=== PATIENT | male | born 1955 | race Caucasian/White ===

== ENCOUNTER 2017-02-27 17:24 | Emergency (ER) | payer SELFPAY ==
[2017-02-27 17:35] VITALS: BP 137/84
[2017-02-27] MEDS ORDERED: Sodium Chloride 0.9% 1,000 ML IV SCH (18:15)
[2017-02-27] MEDS ORDERED: Ondansetron 4 MG/2 ML SDV IVPUSH ONE (18:47)
[2017-02-27] MEDS ORDERED: HYDROmorphone 1 MG/ML Syringe IVPUSH ONE (18:47)
[2017-02-27] MEDS ORDERED: Iopamidol 755 Mg/ML 100 ML Bottle IVPUSH ONE (19:17)
[2017-02-27] MEDS ORDERED: Iopamidol 612 MG/ML 100 ML Bottle IVPUSH ONE (19:21)
[2017-02-27] MEDS ORDERED: Lidocaine 1% with EPINEPHrine 1:100,000 20 ML MDV ONE (19:22)
[2017-02-27] MEDS ORDERED: Bupivacaine 0.5%/EPINEPHrine 1:200,000 50 ML MDV ONE (19:22)
--- NOTE | 2017-02-27 19:28 | CT ---
CT neck Technique: Multiple axial sections were obtained from above the external auditory canals inferiorly through the lung apices. Intravenous contrast was utilized. Findings: Thickening of the sternocleidomastoid mastoid muscle is seen. Low-density is seen slightly below the level of the mandible involving portions of the sternocleidomastoid mastoid muscle which is felt compatible with abscess. This has maximum measurement about 3.5 cm. Diffuse inflammatory change is seen within the subcutaneous fat within the left neck as well as skin thickening. Mild increased density is noted within the left parotid salivary gland compatible with extension of inflammatory change. Enlarged left submandibular salivary gland also noted likely relating to inflammatory change. Kyphosis noted within the cervical spine likely due to muscle spasm. Scattered degenerative change is noted within the cervical spine. Low density is seen between the upper sternocleidomastoid mastoid muscle and the posterior neck muscles. Difficult to exclude additional abscess which has a thickness of around 5 mm. This occurs at the level of the mandibular angle. Impression: 1. Findings compatible with abscess involving a portion of the sternocleidomastoid mastoid muscle. Inflammatory thickening is seen throughout this muscle as well as additional inflammatory change involving submandibular and parotid salivary glands which are enlarged and show inflammation. Diffuse inflammatory change and thickening of the skin compatible with additional cellulitis. 2. Possible additional abscess between the sternocleidomastoid mastoid muscle and posterior neck muscle at the level of the mandible. As mentioned above, this as a thickness of around 5 mm. Diagnostic code #5
[2017-02-27] MEDS ORDERED: Insulin Regular, Human 100 Units/ML 3 ML Vial SUBCUT STA (19:32)
--- NOTE | 2017-02-27 19:38 | EDM.PDOC ---
ED HPI GENERAL MEDICAL PROBLEM - General Chief Complaint: Neck Problem Stated Complaint: SWELLING ON L SIDE OF NECK Time Seen by Provider: 02/27/17 17:54 Source of Information: Reports: Patient, Provider (Dr. Jenkins), RN notes reviewed History Limitations: Reports: No Limitations - History of Present Illness INITIAL COMMENTS - FREE TEXT/NARRATIVE: The patient states that he developed left neck swelling about 2 months ago. He was seen at a clinic in [place]. He states that no tests were done, but he was prescribed 10 days of antibiotics. The antibiotics reduce the swelling significantly, but the swelling recurred about one week after he finished the antibiotics. He was then seen in a clinic in [place]. Blood tests were apparently negative. He was again prescribed some antibiotics for 10 days, which resolved the swelling. Again, the swelling recurred about 7 days after he finished antibiotics. He was seen at an urgent care in [place]. He states that he was given an injection of steroids and prescribed antibiotics for 15 days. Again, the swelling resolved, only to recur about one week later. He was seen by Amaya Hare in the clinic this past 02/25/2017, where he states he was prescribed prednisone. He states that he took all of them at the same time. He underwent an ultrasound of the neck yesterday, but he does not know the results. He was seen by Dr. Jenkins this morning. A fine-needle aspirate was performed, obtaining non-purulent fluid. He was prescribed antibiotics. He states that after the FNA, the swelling became significantly worse. He states that he took 3 of the antibiotic pills all at once. He contacted Dr. Jenkins, who instructed him to come to the ED. No recent fever. The patient denies a dental pain with mastication. Left Neck Pain Score (Numeric/FACES): 7 - Related Data Allergies Allergy/AdvReac Type Severity Reaction Status Date / Time No Known Allergies Allergy Verified 02/27/17 17:39 Home Meds: Home Meds Sulfamethoxazole/Trimethoprim [Bactrim Ds Tablet] 1 tab PO BID 02/27/17 [History ] Past Medical History Endocrine/Metabolic History: Reports: Obesity/BMI 30+ - Past Surgical History HEENT Surgical History: Reports: Oral surgery ([place] teeth extraction), Tonsillectomy Neurological Surgical History: Reports: Lumbar spine (Microdiscectomy) Musculoskeletal Surgical History: Reports: Other (see below) (Left foot repair, Left arm surgery) Social & Family History - Tobacco Use Smoking Status *Q: Never Smoker - Caffeine Use Caffeine Use: Reports: Coffee - Alcohol Use Alcohol Use History: Yes Alcohol Use Frequency: Socially - Recreational Drug Use Recreational Drug Use: No - Living Situation & Occupation Living situation: Reports: single, alone Occupation: unemployed ED ROS GENERAL - Review of Systems Review Of Systems: See Below Constitutional: Reports: No Symptoms HEENT: Reports: Throat Swelling (as per the HPI) Respiratory: Reports: No Symptoms Cardiovascular: Reports: No Symptoms Endocrine: Reports: No Symptoms GI/Abdominal: Reports: No Symptoms : Reports: No Symptoms Musculoskeletal: Reports: No Symptoms Skin: Reports: No Symptoms Neurological: Reports: No Symptoms Psychiatric: Reports: No Symptoms Hematologic/Lymphatic: Reports: No Symptoms Immunologic: Reports: No Symptoms ED EXAM, GENERAL - Physical Exam Exam: See Below Exam Limited By: No Limitations General Appearance: Alert, WD/WN, No Apparent Distress Eye Exam: Bilateral Eye: Normal Inspection Ears: Normal External Exam, Hearing Grossly Normal Ear Exam: Bilateral Ear: Auricle Normal Nose: Normal Inspection, No Blood Throat/Mouth: Normal Inspection, Normal Lips, Normal Teeth, Normal Gums, Normal Oropharynx, Normal Voice, No Airway Compromise Head: Atraumatic, Normocephalic Neck: Other (Substantial swelling to the left/anterior neck, submandibularly. Tender to palpation.) Respiratory/Chest: No Respiratory Distress, Lungs Clear, Normal Breath Sounds, No Accessory Muscle Use Cardiovascular: Normal Peripheral Pulses, Regular Rate, Rhythm, No Gallop, No JVD, No Murmur, No Rub Peripheral Pulses: 4+: Radial (L), Radial (R) GI/Abdominal: Normal Bowel Sounds, Soft, Non-Tender, No Organomegaly, No Distention, No Abnormal Bruit, No Mass, Other (Obese) (Male) Exam: Deferred Rectal (Males) Exam: Deferred Back Exam: Normal Inspection, Full Range of Motion, NT Extremities: Normal Inspection, Normal Range of Motion, No Pedal Edema, Normal Capillary Refill Neurological: Alert, Oriented, Normal Cognition, No Motor/Sensory Deficits Psychiatric: Normal Affect Skin Exam: Warm, Dry, Intact, Normal Color, No Rash Lymphatic: No Adenopathy Course - Vital Signs Last Recorded V/S: Last Vital Signs Temp 2.7 C L 05/11/17 19:48 Pulse 95 02/27/17 19:48 Resp 20 02/27/17 19:48 BP 137/84 02/27/17 19:48 Pulse Ox 98 02/27/17 19:48 - Orders/Labs/Meds Orders: Active Orders 24 hr Category Date Time Status Ampicillin/Sulbactam Na [Unasyn] 3 gm Med 02/27/17 20:16 Ordered Sodium Chloride 0.9% [Normal Saline] 100 ml IV ONETIME Sodium Chloride 0.9% [Normal Saline] 1,000 ml Med 02/27/17 18:15 Active IV ASDIRECTED Medication Orders Sodium Chloride (Normal Saline) 1,000 mls @ 150 mls/hr IV ASDIRECTED JESSE Last Admin: 02/27/17 18:55 Dose: 150 mls/hr Labs: Laboratory Tests 02/27/17 02/27/17 Range/Units 18:42 18:42 WBC 11.70 H (4.23-9.07) K/mm3 RBC 4.62 L (4.63-6.08) M/mm3 Hgb 13.7 (13.7-17.5) gm/L Hct 41.5 (40.1-51.0) % MCV 89.8 (79.0-92.2) fl MCH 29.7 (25.7-32.2) pg MCHC 33.0 (32.2-35.5) g/dl RDW Std Deviation 44.9 H (35.1-43.9) fL Plt Count 240 (163-337) K/mm3 MPV 9.3 L (9.4-12.3) fl Neutrophils % (Manual) 80 H (40-60) % Band Neutrophils % 0 (0-10) % Lymphocytes % (Manual) 15 L (20-40) % Atypical Lymphs % 0 % Monocytes % (Manual) 4 (2-10) % Eosinophils % (Manual) 1 (0.8-7.0) % Basophils % (Manual) 0 L (0.2-1.2) Platelet Estimate Adequate Plt Morphology Comment See note Poikilocytosis 1+ slight Anisocytosis 1+ slight Microcytosis 1+ slight Macrocytosis 1+ slight Ovalocytes 1+ slight RBC Morph Comment Abnormal Sodium 136 (136-145) mEq/L Potassium 3.6 (3.5-5.1) mEq/L Chloride 101 (98-107) mEq/L Carbon Dioxide 28 (21-32) mEq/L Anion Gap 10.6 (5-15) BUN 18 (7-18) mg/dL Creatinine 1.2 (0.7-1.3) mg/dL Est Cr Clr Drug Dosing 79.37 mL/min Estimated GFR (MDRD) > 60 (>60) mL/min BUN/Creatinine Ratio 15.0 (14-18) Glucose 316 H (80-115) mg/dL Calcium 8.5 (8.5-10.1) mg/dL Total Bilirubin 0.5 (0.2-1.0) mg/dL AST 9 L (15-37) U/L ALT 31 (16-63) U/L Alkaline Phosphatase 77 (46-116) U/L C-Reactive Protein 3.6 H* (<1.0) mg/dL Total Protein 6.8 (6.4-8.2) g/dl Albumin 3.5 (3.4-5.0) g/dl Globulin 3.3 gm/dL Albumin/Globulin Ratio 1.1 (1-2) Meds: Medications Generic Name Dose Route Start Last Admin Trade Name Freq PRN Reason Stop Dose Admin Sodium Chloride 1,000 mls @ 150 mls/hr 02/27/17 18:15 02/27/17 18:55 Normal Saline IV 150 mls/hr ASDIRECTED JESSE Administration Discontinued Medications Generic Name Dose Route Start Last Admin Trade Name Freq PRN Reason Stop Dose Admin Bupivacaine HCl/Epinephrine Bitart Confirm 02/27/17 19:22 Marcaine 0.5%/Epinephrine 1:200,000 Administered 02/27/17 19:23 Dose 50 ml .ROUTE .STK-MED ONE Fentanyl Confirm 02/27/17 19:43 Sublimaze Administered 02/27/17 19:44 Dose 250 mcg .ROUTE .STK-MED ONE Hydromorphone HCl 1 mg 02/27/17 18:47 02/27/17 18:57 Dilaudid IVPUSH 02/27/17 18:48 1 mg ONETIME ONE Administration Hydromorphone HCl 1 mg 02/27/17 20:01 02/27/17 20:14 Dilaudid IVPUSH 02/27/17 20:02 1 mg ONETIME STA Administration Lidocaine HCl Confirm 02/27/17 19:43 Xylocaine-Mpf 1% Administered 02/27/17 19:44 Dose 4 mls @ as directed .ROUTE .STK-MED ONE Insulin Human Regular 10 unit 02/27/17 19:32 02/27/17 19:43 Humulin R SUBCUT 02/27/17 19:33 10 unit ONETIME STA Administration Protocol Iopamidol 80 ml 02/27/17 19:21 02/27/17 19:22 Isovue-300 (61%) IVPUSH 02/27/17 19:22 80 ml ONETIME ONE Administration Lidocaine/Epinephrine Confirm 02/27/17 19:22 Xylocaine 1% With Epinephrine 1:100,000 Administered 02/27/17 19:23 Dose 20 ml .ROUTE .STK-MED ONE Midazolam HCl Confirm 02/27/17 19:43 Versed 1 Mg/Ml Administered 02/27/17 19:44 Dose 2 mg .ROUTE .STK-MED ONE Ondansetron HCl 4 mg 02/27/17 18:47 02/27/17 18:56 Zofran IVPUSH 02/27/17 18:48 4 mg ONETIME ONE Administration Ondansetron HCl Confirm 02/27/17 19:42 Zofran Administered 02/27/17 19:43 Dose 4 mg .ROUTE .STK-MED ONE Propofol Confirm 02/27/17 19:42 Diprivan 20 Ml Administered 02/27/17 19:43 Dose 200 mg .ROUTE .STK-MED ONE Rocuronium [place] Confirm 02/27/17 19:42 Zemuron Administered 02/27/17 19:43 Dose 50 mg .ROUTE .STK-MED ONE - Radiology Interpretation Free Text/Narrative:: CT of the soft tissue of the neck with IV contrast is read by Dr. Ko as: 1. Findings compatible with abscess involving a portion of the sternocleidomastoid mastoid muscle. Inflammatory thickening is seen throughout this muscle as well as additional inflammatory change involving the submandibular and parotid salivary glands which are enlarged and show inflammation. Diffuse inflammatory change and thickening of the skin compatible with additional cellulitis. 2. Possible additional abscess between the sternocleidomastoid mastoid muscle and posterior neck muscle at the level of the mandible. As mentioned above, this as a thickness of around 5 mm. - Re-Assessments/Exams Free Text/Narrative Re-Assessment/Exam: 02/27/17 19:33 The patient's blood glucose has returned elevated at 316. The patient states that he has been told in the past that his blood sugar was "a little high", but he has never been diagnosed with or treated for diabetes. It is possible that the patient has prediabetes, with current hyperglycemia due to infection and recent steroids. Nevertheless, for today's purposes, I will attempt to bring the patient's blood glucose down with insulin. 02/27/17 20:[address] scan findings, I have ordered Unasyn 3 g IV. I am told that Dr. Jenkins has seen the CT scan and is recommending transfer to [place]. The patient is agreeable. 02/27/17 20:[address] Mcmahon, ENT at [facility], at 20:27. She agreed to be the consult on the case, but not the accepting physician. Case then discussed with Dr. Cooper, hospitalist at [facility], at 20:42. She accepts the patient for direct admission. Departure - Departure Time of Disposition: 20:48 Disposition: DC/Tfer to [facility] 02 Condition: fair Clinical Impression: Submandibular abscess - Discharge Information - My Orders Last 24 Hours: My Active Orders 02/27/17 18:15 Sodium Chloride 0.9% [Normal Saline] 1,000 ml IV ASDIRECTED 02/27/17 20:16 Ampicillin/Sulbactam Na [Unasyn] 3 gm Sodium Chloride 0.9% [Normal Saline] 100 ml IV ONETIME - Assessment/Plan Last 24 Hours: My Active Orders 02/27/17 18:15 Sodium Chloride 0.9% [Normal Saline] 1,000 ml IV ASDIRECTED 02/27/17 20:16 Ampicillin/Sulbactam Na [Unasyn] 3 gm Sodium Chloride 0.9% [Normal Saline] 100 ml IV ONETIME
[2017-02-27] MEDS ORDERED: Ondansetron 4 MG/2 ML SDV ONE (19:42)
[2017-02-27] MEDS ORDERED: Rocuronium 50 MG/5 ML Vial ONE (19:42)
[2017-02-27] MEDS ORDERED: Propofol 200 MG/20 ML SDV ONE (19:42)
[2017-02-27] MEDS ORDERED: Midazolam 1 MG/ML 2 ML SDV ONE (19:43)
[2017-02-27] MEDS ORDERED: Lidocaine 1% 2 ML ONE (19:43)
[2017-02-27] MEDS ORDERED: fentaNYL 250 MCG/5 ML SDV ONE (19:43)
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
[2017-02-27] MEDS ORDERED: HYDROmorphone 1 MG/ML Syringe IVPUSH STA (20:01)
[2017-02-27] MEDS ORDERED: Ampicillin/Sulbactam Na 3 GM in Sodium Chloride 0.9% 100 ML IV ONE (20:16)
== END 2017-02-27 22:15 ==
LOC: JD.ED 17:24
DX: K12.2 Cellulitis and abscess of mouth (principal); R73.09 Other abnormal glucose; E66.9 Obesity, unspecified
CPT/HCPCS: 36415; 70491; 80053; 85025; 86140; 96361; 96365; 96372; 96375; 96376; 99285; J0295; J1170; J1817; J2405; J7030; J7040; Q9967; J2250; J2704; J3010